=== PATIENT | female | born 1995 | race Two or more races ===

== ENCOUNTER 2022-12-13 19:48 | Inpatient (IN) | payer MEDICAID, OTHER ==
[~2022-12-13] VITALS: Ht 170.2 cm; Wt 67.4 kg
[2022-12-13] MEDS ORDERED: ACETAMINOPHEN 325 MG TABLET PO ONE (22:45)
[2022-12-13 22:46] LABS: BASOPHILS % (AUTO) 0.6 % (0.0-2.0); EOSINOPHILS % (AUTO) 0.5 % (1.0-6.0); HEMATOCRIT 41.5 % (36-46); HEMOGLOBIN 13.9 g/dL (12.0-16.0); LYMPHOCYTES # (AUTO) 2.4 K/uL (1.0-4.8); LYMPHOCYTES % (AUTO) 37.5 % (22.0-44.0); MEAN CORPUSCULAR HEMOGLOBIN 29.1 pg (26.0-34.0); MEAN CORPUSCULAR HGB CONC 33.6 G/dL (31.0-37.0); MEAN CORPUSCULAR VOLUME 87 fL (80-100); MONOCYTES # (AUTO) 0.3 K/uL (0.1-1.0); NEUTROPHILS # (AUTO) 3.6 K/uL (1.8-7.7); NEUTROPHILS % (AUTO) 56.4 % (40.0-70.0); PLATELET COUNT (AUTO) 328 K/uL (150-450); RED BLOOD CELL COUNT(AUTO) 4.79 MIL/uL (4.00-5.20); RED CELL DISTRIBUTION WIDTH 12.8 % (11.5-14.5); WHITE BLOOD COUNT (AUTO) 6.5 K/uL (4.5-11.0)
[2022-12-13 22:51] LABS: ANION GAP 8 mmol/L (8-16); CALCIUM, TOTAL 9.7 mg/dL (8.8-10.5); CARBON DIOXIDE 28 mmol/L (22-29); CHLORIDE 101 mmol/L (98-107); CREATININE 0.62 mg/dL (0.60-1.30); GLOMERULAR FILTR. RATE CALC > 60 mL/min (>60); GLUCOSE,RANDOM 84 mg/dL (70-110); POTASSIUM 3.7 mmol/L (3.5-5.1); SODIUM SERUM 137 mmol/L (136-145); UREA NITROGEN, BLOOD 9 mg/dL (7-18)
[2022-12-13 22:57] LABS: ALANINE AMINOTRANSFERASE 41 U/L (12-78); ALKALINE PHOSPHATASE 95 U/L (46-116); ASPARTATE AMINOTRANSFERASE 21 U/L (15-37); BILIRUBIN,TOTAL 0.8 mg/dL (0.1-1.0); TOTAL PROTEIN, SERUM 8.3 g/dL (6.4-8.2)
[2022-12-13] MEDS ORDERED: BACITRACIN 0.9 GM PACKET OINTMENT TP ONE (23:00)
[2022-12-13] MEDS ORDERED: PERTUSS(ACELL),DIPH,TET VAC/PF 0.5 ML SYRINGE IM. ONE (23:00)
[2022-12-13] MEDS ORDERED: OLANZapine 5 MG RAPDIS TABLET PO PRN (23:00)
[2022-12-13 23:04] LABS: ALCOHOL, BLOOD (SERUM) < 3 mg/dL (0-10)
[2022-12-13] MEDS ORDERED: LORazepam 2 MG/ML VIAL ONE (23:36)
[2022-12-13] MEDS ORDERED: DiphenhydrAMINE HCL 50 MG/ML VIAL ONE (23:36)
[2022-12-13] MEDS ORDERED: HALOPERIDOL LACTATE 5 MG/ML VIAL IM ONE (23:45)
[2022-12-13] MEDS ORDERED: DiphenhydrAMINE HCL 50 MG/ML VIAL IM ONE (23:45)
[2022-12-13] MEDS ORDERED: LORazepam 2 MG/ML VIAL IM ONE (23:45)
[2022-12-14 04:19] LABS: COVID AG,FIA SOURCE NASAL SWAB
[2022-12-14 04:38] LABS: SARS-COV2 (COVID) ANTIGEN,FIA Negative (Negative)
[2022-12-14] MEDS ORDERED: HALOPERIDOL 5 MG TABLET PO ONE (07:30)
[2022-12-14] MEDS ORDERED: DiphenhydrAMINE HCL 25 MG CAPSULE PO ONE (07:30)
[2022-12-14] MEDS ORDERED: LORazepam 2 MG TABLET PO ONE (07:30)
[2022-12-14 10:13] VITALS: BP 115/62; PULSE 91; RESP 18; TEMP 97; O2SAT 91
[2022-12-14] MEDS ORDERED: INFLUENZA VIRUS VACCINE QVS 2023-24 (6MO+)/PF 60 MCG/0.5 ML SYRINGE IM. ONE (11:00)
[2022-12-14 11:15] VITALS: BP 115/62; PULSE 91; RESP 18; TEMP 98
[2022-12-14] MEDS ORDERED: PROMETHAZINE HCL 25 MG TABLET PO PRN (11:30)
[2022-12-14] MEDS ORDERED: MAG HYDROX/ALUMINUM HYD/SIMETH ES 30 ML SUSPENSION UDCUP PO PRN (11:30)
[2022-12-14] MEDS ORDERED: LOPERAMIDE HCL 2 MG CAPSULE PO PRN (11:30)
[2022-12-14] MEDS ORDERED: MAGNESIUM HYDROXIDE SUSPENSION 30 ML UDCUP PO PRN (11:30)
[2022-12-14] MEDS ORDERED: GuaiFENesin/D-METHORPHAN [SUGAR-FREE] 200-20MG/10 ML SYRUP UDCUP PO PRN (11:30)
[2022-12-14] MEDS ORDERED: HydrOXYzine PAMOATE 50 MG CAPSULE PO PRN (11:30)
[2022-12-14] MEDS ORDERED: ACETAMINOPHEN 325 MG TABLET PO PRN (11:30)
[2022-12-14] MEDS ORDERED: TUBERCULIN, PURIFIED PROTEIN DERIVATIVE 5 TU/0.1 ML SYRINGE ID ONE (11:30)
[2022-12-14] MEDS: LORazepam 2 MG TABLET PO PRN (12:37)
[2022-12-14] MEDS: THIAMINE 100 MG TABLET PO SCH (19:11)
[2022-12-14] MEDS: MELATONIN 5 MG TABLET PO SCH (20:12)
[2022-12-14 21:43] VITALS: BP 121/63; PULSE 85; RESP 18; TEMP 97.4
[2022-12-14 21:46] VITALS: BP 121/63; PULSE 85; RESP 18; TEMP 97.4
[2022-12-14 22:03] VITALS: RESP 18; TEMP 98
[2022-12-14 22:05] VITALS: RESP 18; TEMP 98
[2022-12-14] MEDS: ZOLPIDEM TARTRATE 10 MG TABLET PO PRN (22:29)
[2022-12-15] MEDS: LORazepam 2 MG TABLET PO PRN ×3 (04:26→20:15)
[2022-12-15 07:18] LABS: HEMOGLOBIN A1C 5.1 % (3.8-5.6)
[2022-12-15 07:20] LABS: CHOL/HDL RATIO 4.3 (3.9-5.7); FREE T4 (FREE THYROXINE) 1.4 ng/dL (0.76-1.46); THYROID STIMULATING HORMONE 1.2 uIU/mL (0.36-3.74)
[2022-12-15 08:13] VITALS: BP 107/72; PULSE 90; RESP 16; TEMP 97.7
[2022-12-15] MEDS: OMEGA-3/DHA/EPA/FISH OIL 1,000 MG CAPSULE PO SCH (09:29)
[2022-12-15] MEDS: FLUoxetine HCL 20 MG CAPSULE PO SCH (09:29)
[2022-12-15] MEDS: THIAMINE 100 MG TABLET PO SCH ×2 (09:30→16:12)
[2022-12-15] MEDS: FOLIC ACID 1 MG TABLET PO SCH (09:30)
[2022-12-15] MEDS: MULTIVITAMINS WITH MINERALS, THERAPEUTIC TABLET PO SCH (09:30)
[2022-12-15] MEDS: NALTREXONE HCL 50 MG TABLET PO SCH (09:31)
[2022-12-15] MEDS ORDERED: OMEG-135 PO (17:52)
[2022-12-15] MEDS ORDERED: NALT50TA PO (17:52)
[2022-12-15] MEDS ORDERED: FLUO20CA36 PO (17:52)
[2022-12-15] MEDS ORDERED: MELA5TAB40 PO (17:52)
[2022-12-15] MEDS: MELATONIN 5 MG TABLET PO SCH (20:15)
[2022-12-15] MEDS: ZOLPIDEM TARTRATE 10 MG TABLET PO PRN (21:26)
[2022-12-15 22:23] VITALS: RESP 18
[2022-12-16] MEDS: LORazepam 2 MG TABLET PO PRN (06:56)
[2022-12-16 08:20] VITALS: BP 123/86; PULSE 121; RESP 18; TEMP 97.7
[2022-12-16] MEDS: NALTREXONE HCL 50 MG TABLET PO SCH (08:23)
[2022-12-16] MEDS: FOLIC ACID 1 MG TABLET PO SCH (08:25)
[2022-12-16] MEDS: OMEGA-3/DHA/EPA/FISH OIL 1,000 MG CAPSULE PO SCH (08:25)
[2022-12-16] MEDS: FLUoxetine HCL 20 MG CAPSULE PO SCH (08:25)
[2022-12-16] MEDS: MULTIVITAMINS WITH MINERALS, THERAPEUTIC TABLET PO SCH (08:25)
[2022-12-16] MEDS: THIAMINE 100 MG TABLET PO SCH (08:25)
== END 2022-12-16 14:33 | disposition home or self-care (01) | DRG 751 ==
LOC: EMS 19:53 → EDBD 19:53 → 3EC 12-14 09:03
PROVIDERS: ADMIT Psychiatry & Neurology Psychiatry; ATTEND Psychiatry & Neurology Psychiatry
DX: F33.2 Major depressive disorder, recurrent severe without psychotic features (principal); R45.851 Suicidal ideations; F17.210 Nicotine dependence, cigarettes, uncomplicated; F19.10 Other psychoactive substance abuse, uncomplicated; J44.9 Chronic obstructive pulmonary disease, unspecified; Z20.822 Contact with and (suspected) exposure to COVID-19; S61.512A Laceration without foreign body of left wrist, initial encounter; S61.511A Laceration without foreign body of right wrist, initial encounter; X58.XXXA Exposure to other specified factors, initial encounter; Y93.89 Activity, other specified; Y92.89 Other specified places as the place of occurrence of the external cause; Y99.8 Other external cause status
CPT/HCPCS: 80053; 80061; 83036; 84439; 84443; 84703; 85025; 86592; 90715; 99291; G0480; J1200; J1630; J2060; Q9967